=== PATIENT | female | born 1965 | race Two or more races ===

== ENCOUNTER 2023-11-09 10:57 | Emergency (ER) | payer OTHER ==
[~2023-11-09] VITALS: Ht 162.6 cm; Wt 89.8 kg
[2023-11-09] MEDS ORDERED: ECOTRIN81 MG (11:28)
[2023-11-09] MEDS ORDERED: XIGDUO XR 5 MG1 EAC1 PO (11:28)
[2023-11-09] MEDS ORDERED: TOPROL XL50 M1 (11:28)
[2023-11-09] MEDS ORDERED: PLAVIX75 MG (11:28)
[2023-11-09] MEDS ORDERED: FOSRENOL1000 MG (11:29)
[2023-11-09] MEDS ORDERED: CRESTOR20 MG PO (11:29)
[2023-11-09] MEDS ORDERED: ATACAND4 MG (11:29)
[2023-11-09] MEDS ORDERED: TRULICITY0.75 MG/0. SQ (11:30)
[2023-11-09] MEDS ORDERED: 0.9 % SODIUM CHLORIDE 500 ML IV ONE (11:45)
[2023-11-09 12:23] LABS: HEMATOCRIT 40.5 % (36.0-45.00); HEMOGLOBIN 13.5 g/dL (12.0-15.00); MEAN CELL VOLUME 87.5 fL (80.00-100.00); MEAN CORPUSCULAR HEMOGLOBIN 29.2 pg (27.00-32.0); MEAN CORPUSCULAR HGB CONC 33.4 g/dl (32.0-36.0); PLATELET COUNT 131 K/uL (150-450); RED BLOOD COUNT 4.63 M/uL (4.00-6.00); RED CELL DISTRIBUTION WIDTH 14.3 % (11.5-14.5)
[2023-11-09 12:29] LABS: ABG PH 7.422 (7.35-7.45); ABG PO2 70.7 mmHg (80-100); ABG pCO2 44.7 mmHg (35-45); SaO2 94.5 %
[2023-11-09 12:30] LABS: BASE EXCESS 3.4 mmol/l; BICARBONATE 28.4 mmol/l (23-25); Tco2 29.8 mmol/l; allen test SATISFACTORY; o2 21 %; puncture site RADIAL LEFT
[2023-11-09 13:02] LABS: ALBUMIN 3.2 gm/dL (3.4-5.0); BILIRUBIN TOTAL 0.36 mg/dL (0.3-1.2); CALCIUM 9.1 mg/dL (8.5-10.1); CREATININE SERUM 0.9 mg/dL (0.55-1.02); GFR 63.87; GLOBULINA 4.1 G/DL (2.4-3.5); POTASSIUM 4.31 mEq/L (3.5-5.1); TOTAL PROTEIN 7.3 gm/dL (6.4-8.2)
[2023-11-09] MEDS ORDERED: INSULIN REGULAR, HUMAN 300 UNITS/3 ML UNITS IV ONE (14:30)
[2023-11-09 14:45] LABS: PH,URINE 5.5 (5.0-8.0); URINE APPEARANCE Cloudy; URINE BILIRRUBIN Negative (NEGATIVE); URINE BLOOD Trace; URINE COLOR Yellow; URINE LEUKOCYTE Negative; URINE NITRATE Positive; URINE UROBILINOGEN 0.2 E.U./dl
[2023-11-09] MEDS ORDERED: 0.9 % SODIUM CHLORIDE 1,000 ML IV SCH (14:45)
[2023-11-09 14:49] LABS: URINE EPITHELIAL CELLS 15.7 uL (0.0-38.8); URINE RBC 10.7 uL (0.0-20.8); URINE WBC 81.4 uL (0.0-23.2)
[2023-11-09 15:14] LABS: URINE BACTERIA > 9821.2 uL (0.0-1933); URINE GLUCOSE >=1000 MG/DL (NEGATIVE); URINE PROTEIN 100 (NEGATIVE)
[2023-11-09] MEDS ORDERED: TUSSIN100 MG/51 PO (19:08)
[2023-11-09] MEDS ORDERED: OSEL75CA PO (19:08)
[2023-11-09] MEDS ORDERED: PEPCID AC20 MG PO (19:08)
[2023-11-09] MEDS ORDERED: OSELTAMIVIR PHOSPHATE 75 MG CAPSULE PO ONE (19:15)
== END 2023-11-09 19:31 | disposition home or self-care (01) ==
LOC: ER 10:57
PROVIDERS: General Practice
DX: J10.1 Influenza due to other identified influenza virus with other respiratory manifestations (principal); R19.7 Diarrhea, unspecified; Z95.1 Presence of aortocoronary bypass graft; I10 Essential (primary) hypertension; E11.65 Type 2 diabetes mellitus with hyperglycemia; Z79.85 Long-term (current) use of injectable non-insulin antidiabetic drugs; I20.89 Other forms of angina pectoris; Z20.822 Contact with and (suspected) exposure to COVID-19
CPT/HCPCS: 36415; 71045; 82803; 93005; 96365; 96366; 99283; J1815; J7030; J7042

== ENCOUNTER → 2024-09-15 | Outpatient (CLI) | payer OTHER ==
[~2024-09-15] MED LIST: ATACAND4 MG; CRESTOR20 MG PO; ECOTRIN81 MG; FOSRENOL1000 MG; OSEL75CA PO; PEPCID AC20 MG PO; PLAVIX75 MG; TOPROL XL50 M1; TRULICITY0.75 MG/0. SQ; TUSSIN100 MG/51 PO; XIGDUO XR 5 MG1 EAC1 PO
== END | disposition home or self-care (01) ==
LOC: TOM 08:10
PROVIDERS: ATTEND Internal Medicine Gastroenterology
DX: Z12.11 Encounter for screening for malignant neoplasm of colon (principal)